=== PATIENT | male | born 1990 | race American Indian/Alaskan Native ===

== ENCOUNTER → 2017-07-13 | Outpatient (REF) ==
[2017-07-13 16:38] LABS: ALBUMIN 3.3 gm/dL (3.5-5.0); CALCIUM 7.8 mg/dL (8.4-10.2); PHOSPHOROUS 5.9 mg/dL (2.5-4.5)
== END ==
LOC: ZMSC 16:22
PROVIDERS: Otolaryngology
DX: Z02.89 Encounter for other administrative examinations (principal)

== ENCOUNTER → 2017-07-13 | Outpatient (REF) ==
[2017-07-13 05:24] LABS: ALBUMIN 3.4 gm/dL (3.5-5.0); CALCIUM 7.9 mg/dL (8.4-10.2); PHOSPHOROUS 5.7 mg/dL (2.5-4.5)
== END ==
LOC: ZMSC 05:14
PROVIDERS: Otolaryngology
DX: Z02.89 Encounter for other administrative examinations (principal)

== ENCOUNTER → 2017-07-14 | Outpatient (REF) ==
[2017-07-14 09:19] LABS: ADJUSTED CALCIUM 7.8 mg/dL (8.4-10.2); ALBUMIN 3.1 gm/dL (3.5-5.0); BILIRUBIN,TOTAL 0.6 mg/dL (0.0-1.0); CALCIUM 7.1 mg/dL (8.4-10.2); CREATININE, serum 0.83 mg/dL (0.66-1.25); PHOSPHOROUS 5.6 mg/dL (2.5-4.5); TOTAL PROTEIN 5.7 gm/dL (6.4-8.2)
== END ==
LOC: ZMSC 08:50
PROVIDERS: Otolaryngology
DX: Z02.89 Encounter for other administrative examinations (principal)

== ENCOUNTER → 2017-07-15 | Outpatient (REF) ==
[2017-07-15 05:02] LABS: CREATININE, serum 0.78 mg/dL (0.66-1.25); POTASSIUM 3.7 mmol/L (3.4-5.0)
[2017-07-15 06:05] LABS: ALBUMIN 2.9 gm/dL (3.5-5.0)
[2017-07-15 15:20] LABS: CALCIUM 6.8 mg/dL (8.4-10.2)
== END ==
LOC: ZMSC 04:47
PROVIDERS: Otolaryngology
DX: Z02.89 Encounter for other administrative examinations (principal)

== ENCOUNTER → 2017-07-16 | Outpatient (REF) ==
[2017-07-16 08:13] LABS: ALBUMIN 2.7 gm/dL (3.5-5.0); CALCIUM 7.2 mg/dL (8.4-10.2); CREATININE, serum 0.84 mg/dL (0.66-1.25); PHOSPHOROUS 5.2 mg/dL (2.5-4.5); POTASSIUM 3.6 mmol/L (3.4-5.0)
[2017-07-16 17:21] LABS: ALBUMIN 3.2 gm/dL (3.5-5.0); CALCIUM 7.4 mg/dL (8.4-10.2); CREATININE, serum 0.85 mg/dL (0.66-1.25); PHOSPHOROUS 5.4 mg/dL (2.5-4.5); POTASSIUM 3.8 mmol/L (3.4-5.0)
== END ==
LOC: ZMSC 07:58
PROVIDERS: Otolaryngology
DX: Z02.89 Encounter for other administrative examinations (principal)

== ENCOUNTER → 2017-07-17 | Outpatient (REF) ==
[2017-07-17 16:24] LABS: ALBUMIN 2.8 gm/dL (3.5-5.0); CALCIUM 6.5 mg/dL (8.4-10.2); MAGNESIUM 1.3 mg/dL (1.6-2.3); PHOSPHOROUS 5.1 mg/dL (2.5-4.5)
== END ==
LOC: ZMSC 16:10
DX: Z02.89 Encounter for other administrative examinations (principal)

== ENCOUNTER → 2017-07-17 | Outpatient (REF) ==
[2017-07-17 05:13] LABS: CALCIUM 6.8 mg/dL (8.4-10.2); CREATININE, serum 0.88 mg/dL (0.66-1.25); POTASSIUM 4.5 mmol/L (3.4-5.0)
== END ==
LOC: ZMSC 04:58
PROVIDERS: Otolaryngology
DX: Z02.89 Encounter for other administrative examinations (principal)

== ENCOUNTER → 2017-07-18 | Outpatient (REF) ==
[2017-07-18 05:26] LABS: ALBUMIN 2.8 gm/dL (3.5-5.0); CALCIUM 6.8 mg/dL (8.4-10.2); CREATININE, serum 0.76 mg/dL (0.66-1.25); PHOSPHOROUS 5.1 mg/dL (2.5-4.5); POTASSIUM 3.8 mmol/L (3.4-5.0)
[2017-07-18 16:55] LABS: ALBUMIN 3.1 gm/dL (3.5-5.0); CALCIUM 7.6 mg/dL (8.4-10.2); PHOSPHOROUS 6.3 mg/dL (2.5-4.5)
== END ==
LOC: ZMSC 05:11
PROVIDERS: Otolaryngology
DX: Z02.89 Encounter for other administrative examinations (principal)

== ENCOUNTER → 2017-07-19 | Outpatient (REF) ==
[2017-07-19 06:04] LABS: ALBUMIN 2.6 gm/dL (3.5-5.0); CALCIUM 6.9 mg/dL (8.4-10.2); CREATININE, serum 0.85 mg/dL (0.66-1.25); PHOSPHOROUS 5.9 mg/dL (2.5-4.5); POTASSIUM 3.7 mmol/L (3.4-5.0)
[2017-07-19 15:55] LABS: ALBUMIN 2.9 gm/dL (3.5-5.0); CALCIUM 7.3 mg/dL (8.4-10.2); PHOSPHOROUS 5.4 mg/dL (2.5-4.5)
== END ==
LOC: ZMSC 05:51
PROVIDERS: Otolaryngology
DX: Z02.89 Encounter for other administrative examinations (principal)

== ENCOUNTER 2017-09-06 12:00 | Outpatient (RCR) | payer OTHER ==
[2017-09-05 12:20] VITALS: BP 137/90; PULSE 82; TEMP 98
[~2017-09-06] VITALS: Ht 175.3 cm; Wt 100.0 kg
[2017-09-06 11:44] VITALS: BP 143/86; PULSE 87; TEMP 98
[~2017-09-06 12:00] MED LIST: SYNTHROID 0.10.15 MG PO
== END 2017-09-07 14:00 | disposition home or self-care (01) ==
LOC: EUO 12:00
DX: C73 Malignant neoplasm of thyroid gland (principal); Z79.899 Other long term (current) drug therapy
CPT/HCPCS: A9517; J3240

== ENCOUNTER → 2017-09-14 | Outpatient (CLI) | payer OTHER ==
[2017-09-17 11:49] LABS: THYROGLOBULIN AB SCREEN 56 IU/mL (<4.0)
[2017-09-17 18:07] LABS: THYROGLOBULIN TUMOR MARKER 459 ng/mL (())
== END ==
LOC: COL.RAD 12:01
PROVIDERS: Otolaryngology
DX: C73 Malignant neoplasm of thyroid gland (principal)